=== PATIENT | female | born 1970 | race Caucasian/White ===

== ENCOUNTER → 2016-11-14 | Outpatient (CLI) | payer OTHER ==
--- NOTE | 2016-11-14 13:06 | REP ---
BILATERAL ANKLE, EIGHT VIEWS: HISTORY: Pain. RIGHT ANKLE, FOUR VIEWS: There is no acute fracture or dislocation. The joint space is normal in appearance. An osteophyte is present on the inferior calcaneus. IMPRESSION: There is no acute fracture or dislocation. LEFT ANKLE, FOUR VIEWS: There is no acute fracture or dislocation. The joint space is normal in appearance. Osteophytes are present on the inferior and posterior calcaneus. IMPRESSION: There is no acute fracture or dislocation. Signed by Phillip Dominguez MD 11/14/2016 01:29 P
--- NOTE | 2016-11-14 13:11 | REP ---
BILATERAL FOOT, EIGHT VIEWS: HISTORY: Pain. RIGHT FOOT, FOUR VIEWS: There is no acute fracture or dislocation. There is narrowing of tarsal and tarsal metatarsal joint spaces with associated osteophyte formation. There is narrowing of the first metatarsal phalangeal joint space. An osteophyte is present on the inferior calcaneus. IMPRESSION: Degenerative change as described above. LEFT FOOT, FOUR VIEWS: There is no acute fracture or dislocation. There is narrowing of tarsal and tarsal metatarsal joint spaces with associated osteophyte formation. There is narrowing of the first tarsal metatarsal joint space. Osteophytes are present on the inferior and posterior calcaneus. IMPRESSION: Degenerative change as described above. Signed by Phillip Dominguez MD 11/14/2016 01:29 P
== END ==
LOC: M WUC 11:20
PROVIDERS: ATTEND Family Medicine Addiction Medicine
DX: M25.571 Pain in right ankle and joints of right foot (principal); M25.572 Pain in left ankle and joints of left foot

== ENCOUNTER → 2017-01-23 | Outpatient (CLI) | payer OTHER ==
[~2017-01-23] MED LIST: ALEV220C2 PO; MAPA325T3 PO; METAPKT PO; PERCOCET PO
--- NOTE | 2017-01-23 15:34 | REP ---
TWO VIEW CHEST: COMPARISON: 06/12/2007. There is no evidence of acute infiltrate. No pleural effusion is seen. The heart is normal in size. The mediastinal silhouette is unremarkable. The visualized osseous structures are intact. There are degenerative changes of the spine. IMPRESSION: No acute pulmonary disease. Unreviewed
--- NOTE | 2017-01-23 15:37 | REP ---
Left shoulder: Three views. History: Left shoulder pain. Comparison study: February 13, 2015. Findings: There is osteoarthritic hypertrophy at the AC joint similar to the 2015 prior exam. The glenohumeral and acromioclavicular joints are normally aligned. Periarticular soft tissues are unremarkable. Impression: AC joint osteoarthritis. Otherwise negative left shoulder views. Signed by Lizandro Steven MD 01/23/2017 04:26 P
--- NOTE | 2017-01-23 15:40 | REP ---
Standing AP view of both knees: Single view. History: Pain. Findings: There is medial compartment joint space narrowing, mild in degree bilaterally. There is some early osteophytic lipping. Mild osteophytic lipping is seen affecting the lateral compartments as well. No erosive changes seen. Impression: Mild bilateral medial compartment joint space narrowing. Signed by Lizandro Steven MD 01/23/2017 04:26 P
--- NOTE | 2017-01-23 15:42 | REP ---
SI joint series: Four views. History: Pain. Findings: AP tube angle and bilateral oblique views of the SI joints demonstrate mild sclerosis on the iliac side of the SI joints bilaterally. No erosive change is seen. There are degenerative disc changes in the lumbar spine. Impression: Mild degenerative sclerosis. No erosive change or ankylosis seen. Signed by Lizandro Steven MD 01/23/2017 04:26 P
--- NOTE | 2017-01-23 15:45 | REP ---
Lumbar spine series: Five views. History: Pain. Findings: Five views of the lumbar spine show diffuse degenerative disc disease throughout the visualized thoracic and lumbar spine levels. In the lumbar spine this is the most pronounced at L4-5 and L5-S1. There is considerable disc space narrowing, sclerosis and spurring at T12-L1 as well. The lower thoracic canal degenerative disc changes have increased somewhat since 2014. Lumbar changes are essentially status quo. There is osteoarthritic facet hypertrophy and sclerosis bilaterally at L5-S1 and to a lesser extent at L4-5. Psoas margins are symmetric. Sacrum and SI joints are intact. Impression: Advanced degenerative spondylosis changes. Signed by Lizandro Steven MD 01/23/2017 04:26 P
[2017-01-23 15:57] LABS: ALBUMIN 3.6 GM/DL (3.2-5.2); ALBUMIN/GLOBULIN RATIO 0.92 (1.00-1.93); ALKALINE PHOSPHATASE 70 U/L (45-117); ALT/SGPT 20 U/L (12-78); ANION GAP 9 MEQ/L (8-16); AST/SGOT 14 U/L (15-37); BILIRUBIN,TOTAL 0.4 MG/DL (0.2-1.0); BLOOD UREA NITROGEN 14 MG/DL (7-18); CALCIUM LEVEL 8.1 MG/DL (8.5-10.1); CARBON DIOXIDE LEVEL 25 MEQ/L (21-32); CHLORIDE LEVEL 105 MEQ/L (98-107); CREATININE FOR GFR 0.75 MG/DL (0.55-1.02); GLOMERULAR FILTRATION RATE > 60.0 (>58); GLUCOSE, FASTING 73 MG/DL (70-105); POTASSIUM SERUM 4.3 MEQ/L (3.5-5.1); SODIUM LEVEL 139 MEQ/L (136-145); TOTAL PROTEIN 7.5 GM/DL (6.4-8.2)
[2017-01-23 16:50] LABS: ADD MANUAL DIFFER YES; DIFF SLIDE NUMBER 261; MEAN CORPUSCULAR HEMOGLOBIN 31.2 pg (27.0-33.0); MEAN CORPUSCULAR HGB CONC 34.2 g/dl (32.0-36.5); MEAN CORPUSCULAR VOLUME 91.3 fl (80.0-96.0); RED CELL DISTRIBUTION WIDTH 13.7 % (11.5-14.5); WHITE BLOOD COUNT 6.5 K/mm3 (4.0-10.0)
[2017-01-23 17:29] LABS: BASOPHILS 1 % (0-4); EOSINOPHILS 7 % (0-5)
[2017-01-23 17:30] LABS: PLATELET CLUMPS LARGE AMT
[2017-01-23 18:42] LABS: ERYTHROCYTE SEDIMENTATION RATE 31 mm/hr (0-20)
[2017-01-26 08:06] LABS: Lyme Disease IgG/IgM Antibodie <0.91 ISR (0.00-0.90); Lyme Disease IgM Ab Quantitati <0.80 index (0.00-0.79)
== END ==
LOC: M LAB 14:04
PROVIDERS: ATTEND Internal Medicine Rheumatology
DX: M35.9 Systemic involvement of connective tissue, unspecified (principal); E55.9 Vitamin D deficiency, unspecified; R53.83 Other fatigue; Z79.899 Other long term (current) drug therapy; M47.896 Other spondylosis, lumbar region; M25.512 Pain in left shoulder; M17.0 Bilateral primary osteoarthritis of knee

== ENCOUNTER 2017-02-04 07:07 | Inpatient (IN) | payer OTHER ==
[~2017-02-04] VITALS: Ht 167.6 cm; Wt 133.5 kg
[2017-02-04] MEDS ORDERED: ALEV220C2 PO (07:17)
--- NOTE | 2017-02-04 07:56 | REP ---
Clinical: Cerebrovascular accident . Comparison: None . Findings: The ventricles, sulci, and cisterns are normal in position and appearance. Cronin-white differentiation is maintained. No acute intracranial hemorrhage, mass/mass effect, pathology or trauma/injury. No evidence for acute infarction. No extra-axial fluid collection. Calvarium is intact. Paranasal sinuses and mastoid air cells are clear. Impression: Normal noncontrast head CT. No evidence for acute intracranial pathology or trauma/injury. Signed by Ralf Benson MD 02/04/2017 07:47 A
[2017-02-04 08:18] LABS: ADD MANUAL DIFFER YES; DIFF SLIDE NUMBER 156; MEAN CORPUSCULAR HEMOGLOBIN 30.7 pg (27.0-33.0); MEAN CORPUSCULAR HGB CONC 33.8 g/dl (32.0-36.5); MEAN CORPUSCULAR VOLUME 90.8 fl (80.0-96.0); RED CELL DISTRIBUTION WIDTH 13.4 % (11.5-14.5); WHITE BLOOD COUNT 6.7 K/mm3 (4.0-10.0)
[2017-02-04 08:19] LABS: INR 0.97
--- NOTE | 2017-02-04 08:23 | REP ---
Clinical: Cerebrovascular accident . Comparison: 01/23/2017 . Findings: The mediastinum and cardiac silhouette are stable and within normal limits for portable technique. The lung foy are clear without acute consolidation, effusion, or pneumothorax. Skeletal structures are intact. Impression: No acute cardiopulmonary process appreciated. Signed by Ralf Benson MD 02/04/2017 08:13 A
[2017-02-04 08:37] LABS: ANION GAP 8 MEQ/L (8-16); BLOOD UREA NITROGEN 13 MG/DL (7-18); CALCIUM LEVEL 8.4 MG/DL (8.5-10.1); CARBON DIOXIDE LEVEL 27 MEQ/L (21-32); CHLORIDE LEVEL 106 MEQ/L (98-107); CREATININE FOR GFR 0.77 MG/DL (0.55-1.02); GLOMERULAR FILTRATION RATE > 60.0 (>58); GLUCOSE, FASTING 96 MG/DL (70-105); POTASSIUM SERUM 3.8 MEQ/L (3.5-5.1); SODIUM LEVEL 141 MEQ/L (136-145)
[2017-02-04 08:59] LABS: BANDS 1 % (< 11); BASOPHILS 2 % (0-4); EOSINOPHILS 1 % (0-5); PLATELET CLUMPS MODERATE AMT
[2017-02-04 09:00] LABS: ANISOCYTOSIS 1+
[2017-02-04] MEDS ORDERED: ENOXAPARIN 40 MG/0.4 ML SYRINGE (J1650) SC SCH (09:00)
[2017-02-04] MEDS ORDERED: ASPIRIN 81 MG CHEW TABLET PO SCH (09:00)
[2017-02-04] MEDS ORDERED: ONDANSETRON 4MG/2ML VIAL (J2405) IV PRN (12:15)
[2017-02-04] MEDS ORDERED: ACETAMINOPHEN TAB 650MG DOSE (2X325MG) PO PRN (12:15)
[2017-02-04 12:42] LABS: FOLATE 9.9 NG/ML (>5.4)
--- NOTE | 2017-02-04 13:17 | HPE ---
DATE OF ADMISSION: 02/04/2017 This is a patient of [facility]. Dermatologist: Dr. Moreira CHIEF COMPLAINT: Is "I've forgotten how to walk." Following is a summary of her presentation. This is a 46-year-old who has had a history of tingling in her right fingertips for around 1 month and has had decreased sensation in her right leg for a lesser period of time. Yesterday, she was having difficulty walking, had decreased strength in her right foot, felt as though she was dragging her foot. Her boyfriend told her that it looked as though she was walking as if she was drunk. She waited a day to see if it would get better. It has not gotten better. She came to the hospital for evaluation today. She is not complaining of chest pain. No shortness of breath. No orthopnea. No paroxysmal nocturnal dyspnea. Not describing daytime sleepiness or difficulty speaking or swallowing. She has had no changes in her medications, as she is not taking medications on a regular basis. Has undergone workup recently with Dr. Moreira due to her neurologic symptoms. She has a past medical history of suspected rheumatic disease; workup pending. No known drug allergies. Does not take medications every day. SURGICAL HISTORY: Is notable for two (C) sections, a back surgery for disc repair remotely, bilateral carpal tunnel surgery in 2005, tubal ligation. FAMILY HISTORY: Is notable for a father who is 75 with history of testicular cancer, hypertension, diabetes. A mother who is 74 with ovarian cancer, hypertension. Socially, she has not smoked in 2 years. 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 She lives in [place]. REVIEW OF SYSTEMS: Is notable for no headache. No visual changes. No runny nose. No sore throat. No chest pain. No shortness of breath. No palpitations. No orthopnea. No paroxysmal nocturnal dyspnea. No abdominal pain. No change in bowel or bladder habits. No focal weakness apart from what has been described. No history of seizures. On physical examination, temperature is 97.8, pulse 74, respiratory rate is 18, blood pressure 168/68, 95% on room air. She is awake, appropriately interactive. A good historian. She is wearing corrective lenses. Sinuses are nontender. Pupils equal, round, reactive, anicteric. Extraocular movements are intact. Nasal septum is midline. Mucous membranes are moist. Facies are symmetrical. Neck is thick. No obvious elevation in jugular venous pressure (JVP). Breathing is symmetrical and rested. I-to-E ratio is 1:3. No wheezes, rales, or rhonchi. Heart is in a regular rate and rhythm. Normal S1, S2. Electrocardiogram (EKG) shows the patient to be in a normal sinus rhythm with a rate of 64. QTc is in the normal range. Abdomen: Soft, doughy, nontender. Strength is symmetrical in the upper extremities. Strength on the right lower extremity is 2+, as she is unable to resist gravity. Patellar reflex on the right is 3+. I am unable to elicit reflex on the left. Sensation is decreased on the right leg to pinprick. There is some decreased sensation in the right hand, as well. Laboratories available for me to review include: White cell count 6.7, hemoglobin 13.4, platelets are clumped. Erythrocyte sedimentation rate (ESR) is 35. INR is 0.97. BUN 13, creatinine 0.7, C-reactive protein 0.44. Rheumatoid factor on the 24th is less than 10. Lyme panel is negative. Head CT is unremarkable. MRI of the C spine and head are pending. Chest x-ray is unremarkable. My assessment is as follows: This is a 46-year-old with focal neurologic deficit of the right lower extremity with complicating numbness of the right hand. This is possibly C spine versus brain, if we relate them. Dr. Khan has been consulted. MRI is pending. The patient will be placed on telemetry. Will do neuro checks. Check a fasting lipid panel. 2D echocardiogram. Carotid Doppler. Monitor her blood pressure. I have also checked a hemoglobin A1c. Thyroid-stimulating hormone (TSH) was in a normal range on 01/23/2017. It does look at that time that her vitamin D level was low. Would likely benefit from supplementation. Deep venous thrombosis (DVT) prophylaxis has been ordered. [facility]
--- NOTE | 2017-02-04 14:10 | REP ---
Clinical: Transient ischemic attack . Technique: Cronin scale and color Doppler evaluation using linear high frequency transducer Findings: Two-dimensional crnoin scale and color images demonstrate normal arterial lumen with laminar flow and no appreciable narrowing. Color Doppler interrogation demonstrates normal arterial wave patterns and velocities with no significant spectral broadening. Normal flow direction is appreciated in the left vertebral artery while the right vertebral artery was not identified. RIGHT (cm/s) LEFT (cm/s) ICA peak systolic velocity 63.4 68.9 ICA diastolic velocity 20.5 27.2 ECA peak systolic velocity 74.6 95.5 CCA peak systolic velocity 78.2 95.7 ICA/CCA ratio 0.81 0.72 Impression: No hemodynamically significant areas of narrowing or stenosis appreciated. Based on set standards narrowing falls within the normal/less than 50% range. Signed by Ralf Benson MD 02/04/2017 02:08 P
[2017-02-04 15:30] VITALS: BP 163/90
[2017-02-04 16:00] VITALS: BP 185/84
[2017-02-04 16:58] LABS: PLTBLUE- EDTA FREE CALC 186 K/mm3 (172-450); PLTBLUE- EDTA FREE MACHINE 169 K/mm3 (172-450)
[2017-02-04 17:15] VITALS: BP 165/70
--- NOTE | 2017-02-04 18:41 | REP ---
MRA BRAIN WITHOUT CONTRAST: HISTORY: Right side weakness. 3D [id number] MR angiography was performed at the level of the [place]. There is no aneurysm, arteriovenous malformation or atherosclerotic lesion. There is origin of the right posterior cerebral artery. Major intracranial vessels are patent. The left vertebral artery is dominant. IMPRESSION:Normal MRA brain. Signed by Phillip Dominguez MD 02/05/2017 08:32 A
--- NOTE | 2017-02-04 18:46 | REP ---
MR BRAIN WITHOUT CONTRAST: HISTORY: Right side weakness. COMPARISON: CT 02/04/2017. Several punctate areas of increased signal intensity on T2 weighted images are present periventricular and subcortical white matter. This represents small vessel ischemic disease. There is no intraparenchymal hemorrhage, infarct, mass, or midline shift. The ventricular system is normal in appearance. There is no extracerebral collection. Mucosal thickening is present in the left maxillary sinus. IMPRESSION: Minimal small vessel ischemic disease. Signed by Phillip Dominguez MD 02/05/2017 08:33 A
--- NOTE | 2017-02-04 18:58 | REP ---
MR CERVICAL SPINE WITHOUT CONTRAST: HISTORY: Right side weakness. A small central disc protrusion is present at the C2-3 level. There is minimal effacement of the thecal sac without spinal cord compression. The C2 neural foramina are patent. A disc bulge and small central disc protrusion are present at the C3-4 level. There is mild effacement of the thecal sac without spinal cord compression. Bilateral uncinate process and left facet hypertrophy are present. These findings produce moderate narrowing of the C3 neural foramina. A disc bulge with associate osteophyte formation is present at the C4-5 level. There is minimal spinal cord compression. Bilateral uncinate process hypertrophy is present. This produces mild and moderate narrowing of the right and left C4 neural foramina respectively. A disc bulge with associate osteophyte formation is present at the C5-6 level. There is mild spinal cord compression. Bilateral uncinate process hypertrophy is present. This produces moderate and mild narrowing of the right and left C5 neural foramina respectively. A disc bulge with associate osteophyte formation is present at the C6-7 level. There is moderate effacement of the thecal sac without spinal cord compression. Uncinate process hypertrophy is present on the right. This produces mild narrowing of the right C6 neural foramen. The left C6 neural foramina is patent. A small central disc protrusion is present at the T1-2 level. There is minimal effacement of the thecal sac without spinal cord compression. The T1 neural foramina are patent on the sagittal images. A small focus of increased signal intensity on T2 weighted images is present in the spinal cord at the C6-7 level. This represents myelomalacia. The C4-5 through C6-7 intervertebral discs are decreased in height consistent with disc degeneration. Normal signal intensity is present in the cervical vertebral bodies. There is loss of the normal lordotic curve. IMPRESSION:There is cervical spondylosis at the C2-3 through C6-7 levels, most significant at the C4-5 and C5-6 levels where there is minimal and mild spinal cord compression respectively. Signed by Phillip Dominguez MD 02/05/2017 08:33 A
[2017-02-04] MEDS: CYANOCOBALAMIN 1,000 MCG/ML VIAL (J3420) IM SCH (19:54)
[2017-02-04 20:00] VITALS: BP 132/73
[2017-02-04 20:20] VITALS: BP 176/83
[2017-02-04] MEDS: SIMVASTATIN 20 MG TAB PO SCH (20:48)
--- NOTE | 2017-02-04 21:11 | ECGEPIP ---
Stationary ECG Study [facility] - ED Test Date: 2017-02-04 Pat Name: JON VENTURA Department: Room: - Gender: F Applique Cutter: YONATHAN : 1970 Requested By: Aubrie Whitaker Order Number: [id number] Reading MD: Aubrie Whitaker Measurements Intervals [place] Rate: 64 P: 13 MT: 159 QRS: 7 QRSD: 98 T: 18 QT: 400 QTc: 413 Interpretive Statements SINUS RHYTHM LOW QRS VOLTAGE IN PRECORDIAL LEADS DELAYED R PROGRESSION NO PRIOR FOR COMPARISON Electronically Signed On 02-04-2017 21:11:18 EDT by Aubrie Whitaker
[2017-02-04] MEDS: methylPREDNISolone INJ 125 MG/2 ML VIAL (J2930) IV SCH (22:06)
[2017-02-05] VITALS: BP 141/77
[2017-02-05] MEDS: methylPREDNISolone INJ 125 MG/2 ML VIAL (J2930) IV SCH ×4 (03:55→20:51)
[2017-02-05 04:00] VITALS: BP 141/79
[2017-02-05 05:50] LABS: MEAN CORPUSCULAR HEMOGLOBIN 31.4 pg (27.0-33.0); MEAN CORPUSCULAR HGB CONC 34.5 g/dl (32.0-36.5); MEAN CORPUSCULAR VOLUME 91.1 fl (80.0-96.0); WHITE BLOOD COUNT 4.6 K/mm3 (4.0-10.0)
--- NOTE | 2017-02-05 06:40 | CR ---
DATE OF CONSULTATION: 02/04/2017 REFERRING PHYSICIAN: Dr. Maurice Damon REASON FOR CONSULTATION: Difficulty walking and right-sided numbness and weakness. HISTORY OF PRESENT ILLNESS: The patient is a 46-year-old woman who was admitted at [facility] due to 5-6 week history of right foot numbness and right arm numbness which has been getting worse. Her symptoms got worse yesterday and she started feeling weakness of her right leg with right-sided foot drop. She felt imbalance and difficulty walking due to incoordination. She denies any headaches, dysphagia, dysarthria, diplopia or urinary incontinence. She complains of intermittent neck and back pain. She has restless legs and periodic leg movements at sleep at night. She denies any episode of stroke or TIA in past. She denies any episodes of loss of vision in past. She denies any falls or loss of consciousness. PAST MEDICAL HISTORY: Possible rheumatoid arthritis for which she has been following with a police district switchboard operator. ALLERGIES: None. CURRENT MEDICATIONS: None. PAST SURGICAL HISTORY: sections, lumbosacral laminectomy, bilateral carpal tunnel surgery, tubal ligation. FAMILY HISTORY: Father had testicular cancer. Father also had hypertension, diabetes and heart disease. Mother had ovarian cancer. SOCIAL HISTORY: She quit smoking 2 years ago. 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 REVIEW OF SYSTEMS: All systems were reviewed and found to be noncontributory. PHYSICAL EXAMINATION: Temperature 97, pulse 68, respiratory rate 16, blood pressure 185/84, 95% saturation on room air. Heart: Regular rate and rhythm. Lungs: Clear to auscultation. Abdomen: Soft, nontender, nondistended. No pedal edema. No gross musculoskeletal abnormalities. Ears, nose, throat examination is within normal limits. No rash was identified. The patient is awake, alert, oriented to place, person and time. Normal speech comprehension and repetition. Extraocular muscles are intact. No facial weakness. Right upper extremity is 4+/5 throughout. Right lower extremity is 4-/5 throughout except right foot dorsiflexors where her strength is 2/5. Left arm and leg are 5/5. She has a positive Miranda's signs in both hands, worse on right side. Plantars are mute. Her gait is unsteady. DIAGNOSTIC STUDIES: Her MRI scan of brain showed small vessel ischemic disease of brain. Carotid ultrasound showed less than 50% bilateral carotid artery stenosis. Her blood tests for coagulopathy and vasculopathy, Lyme antibody are pending. Her vitamin B12 is low 240. Her CBC and metabolic profile were normal. Her ESR is 35. Her MRI of cervical spine showed severe cervical stenosis with cervical cord compression and myelomalacia at the C4-C5 level. ASSESSMENT: 1. Cervical myelopathy. 2. Cervical severe stenosis and cervical cord compression. 3. Small-vessel ischemic disease of brain. 4. Vitamin B12 deficiency. PLAN: 1. I have discussed with Dr. Damon and have recommended urgent spine surgery consultation due to cervical myelopathy and stenosis. 2. Vitamin B12 1 mg intramuscular injection daily for 10 days followed by 1 mg SD daily supplement. 3. Physical and occupational therapy and rehabilitation. 4. Follow with our office in 1 month after hospital discharge.
[2017-02-05 07:37] LABS: ANION GAP 9 MEQ/L (8-16); BLOOD UREA NITROGEN 14 MG/DL (7-18); CALCIUM LEVEL 8.7 MG/DL (8.5-10.1); CARBON DIOXIDE LEVEL 21 MEQ/L (21-32); CHLORIDE LEVEL 109 MEQ/L (98-107); CHOLESTEROL LEVEL 170 MG/DL (<200); CREATININE FOR GFR 0.76 MG/DL (0.55-1.02); GLOMERULAR FILTRATION RATE > 60.0 (>58); GLUCOSE, FASTING 157 MG/DL (70-105); MAGNESIUM LEVEL 2.3 MG/DL (1.8-2.4); POTASSIUM SERUM 4.3 MEQ/L (3.5-5.1); SODIUM LEVEL 139 MEQ/L (136-145); TRIGLYCERIDES LEVEL 52 MG/DL (<150)
[2017-02-05 08:00] VITALS: BP 135/75
--- NOTE | 2017-02-05 08:45 | REP ---
Cervical spine series: Eight views. History: Spinal stenosis. Comparison study: February 13, 2015. Findings: Lateral views done in flexion/extension and neutral position show advanced degenerative disc disease at C4-5, C5-6 and C6-7 with disc space narrowing, sclerosis, osteophyte formation and straightening. There is limitation of flexion/extension range of motion. No subluxation or instability. Vertebral body heights are preserved. These changes are somewhat more pronounced but not new when compared with the January 2015 prior radiographs. AP and open mouth odontoid views show some diffuse osteoarthritic facet hypertrophy in the cervical spine. Oblique images demonstrate uncovertebral spurring consistent with neural foraminal narrowing on the left at C4-5, C5-6 and on the right at C5-6 and C6-7. Impression: Advanced degenerative spondylosis changes C4-5 through C6-7. More pronounced than on the 2014 prior study. Signed by Lizandro Steven MD 02/05/2017 09:53 A
[2017-02-05] MEDS: CYANOCOBALAMIN 1,000 MCG/ML VIAL (J3420) IM SCH (10:50)
[2017-02-05 12:00] VITALS: BP 126/76
[2017-02-05] MEDS ORDERED: NS 1,000 ML IV SCH (12:00)
[2017-02-05] MEDS ORDERED: SLF 3 ML SYR IV PRN (12:45)
--- NOTE | 2017-02-05 13:23 | IPN ---
DATE: 02/05/2017 Ms. Roa is feeling well today, has no complaints of pain, chest pain, shortness of breath. Still has similar neurologic symptoms as yesterday, numbness in her right hand and upper extremity and right lower extremity, as well as some weakness in her right lower extremity. Temperature 97.9, pulse 65, respiratory rate 18, blood pressure 135/75, 97% on room air. Intake and output are notable for a positive fluid balance of 560. Body mass index 48.2. She is awake, appropriately interactive, pleasantly conversant. Her mother and stepfather are at bedside. Mucous membranes moist. Neck supple, thick. Breathing symmetrical. I:E ratio is 1:3 No wheeze, rales or rhonchi. Heart is in a regular rate and rhythm. No significant arrhythmia on monitor. Abdomen soft, doughy, nontender. Decreased sensation in the right lower extremity. White cell count 4.6, hemoglobin 14.3, platelets yesterday 186. INR 0.97. BUN 14, creatinine 0.76. Hemoglobin A1c is 5.5. LDL is 107. Vitamin B12 level is 240. My assessment is as follows: This is a 46-year-old with cervical stenosis and cervical cord compression with cervical myelopathy. Plan will be as follows: 1. Orthopedic. I have discussed the case by phone last evening with Dr. Duron who has seen the patient in consultation with plans for the operating room (OR) tomorrow Discussed this with the patient and family at bedside. 2. Cardiovascular. The patient has good exercise tolerance, is quite active in her activities of daily living. Has no angina or anginal equivalence. At this point, no further workup is necessary to pursue. She is medically optimized for a procedure, which is at least intermediate risk. 3. Patient has vitamin B12 deficiency and is being supplemented. 4. Patient was initially considered for possibility of transient ischemic attack (TIA). At this point, we will continue with planned 2D echocardiogram. No events of TIA or stroke. Hemoglobin A1c was within normal limits. Patient has also been noted to be vitamin D deficient. 5. Morbid obesity complicates care MTDD
[2017-02-05] MEDS: SLF 3 ML SYR IV SCH ×2 (14:00→20:51)
[2017-02-05 16:00] VITALS: BP 138/83
--- NOTE | 2017-02-05 18:18 | ECGEPIP ---
Stationary ECG Study [facility] Test Date: 2017-02-05 Pat Name: JON VENTURA Department: Room: [place] [address] Gender: F Switch Crew Supervisor: DICK : 1970 Requested By: ML Saini Order Number: [id number] Reading MD: Finn Armando Measurements Intervals [place] Rate: 60 P: 26 VT: 146 QRS: 19 QRSD: 101 T: 42 QT: 454 QTc: 455 Interpretive Statements Normal sinus rhythm with sinus arrhythmia Low QRS complex voltage in the limb leads Delayed anterior R wave progression No significant change when compared to prior tracing of 02/04/2007 Electronically Signed On 02-05-2017 18:18:13 EDT by Finn Armando
--- NOTE | 2017-02-05 20:20 | REPUSA ---
HISTORY: OSSIFICATION PLL MYELOPATHY. TECHNIQUE: Axial CT imaging of cervical spine and neck with sagittal and coronal reformatted imaging, without contrast. DLP= 406.2 mGy-cm. FINDINGS: Bone windows demonstrate no evidence of fracture or destructive bony lesion, or instability . There is disc space narrowing, sclerosis, and spurring at C4/C5, C5/C6, and C6/C7 consistent with degenerative spondylosis, with multiple levels of facet joint osteoarthritis, resulting in bilateral foraminal stenosis at C4/C5, right foraminal stenosis at C5/C6, and right foraminal stenosis at C6/C7 . There is no calcification in the posterior longitudinal ligament, but there is prominent posterior spurring and facet joint osteoarthritis resulting in 0.6 cm canal stenosis at C4/C5, and 0.5 cm tanner l stenosis at C5/C6 and at C6/C7. This could be better evaluated with MRI if clinically indicated. The airway in the neck is patent and normal. Larynx is normal. Salivary glands and thyroid gland ar e normal. There are small bilateral benign appearing postinflammatory lymph nodes in the neck, with no other pathologic soft tissue mass lesions or abnormal fluid collection seen in the neck. IMPRESSION: 1. No evidence of fracture or destructive bony lesion, or instability seen in the cervic al spine. 2. There is no significant calcification/ossification seen in the posterior longitudinal ligament, b ut there is multilevel degenerative spondylosis and facet joint osteoarthritis as discussed above, re sulting in 0.5 cm canal stenosis at C5/C6 and C6/C7, and 0.6 cm canal stenosis at C4/C5. There is al so bilateral foraminal stenosis at C4/C5 and right foraminal stenosis at C5/C6 and C6/C7. 3. Small benign appearing postinflammatory cervical lymph nodes are noted with no other pathologic m ass lesions or abnormal fluid collection seen in the neck. Clinical correlation and followup MRI imaging may be warranted as clinically indicated.
--- NOTE | 2017-02-05 20:50 | CR ---
DATE OF CONSULTATION: 02/05/2017 CHIEF COMPLAINT: Cervical myelopathy. HISTORY OF PRESENT ILLNESS: This is a 46-year-old woman who has a history of recent onset of trouble walking. She admits actually that she has had some trouble walking and had to think harder about moving her right lower extremity going on for about 6 months along with some neck pain and sometimes tingling in the right upper extremity. However, those symptoms seemed over the last 3 days to have gotten worse, although today on steroids she is feeling little bit better in terms the numbness in the right hand. She felt like she was walking like a drunk prior to getting admitted to the hospitalist service for further evaluation. She had waited a day to see if it got better, and it didn't better. She has also been seen by Dr. Turner for neurologic issues. There is some consideration for possible rheumatic disease. No known allergies. Does not take daily medications. PAST SURGICAL HISTORY: Include C-sections x2, low back surgery in the past, carpal tunnel surgery in 2005, tubal ligation in the past. FAMILY HISTORY: She has living parents who are 70s, who has some medical issues themselves. SOCIAL HISTORY: Does not smoke. 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 She has a boyfriend. REVIEW OF SYSTEMS: She is not complaining of headache or blurry vision, sore throat, chest pain, abdominal pain. She is complaining of right upper extremity numbness, instability of her gait. Denies history of seizure disorder. CLINICAL EXAMINATION: She is alert, oriented, cooperative. Mood and affect are appropriate. She is very pleasant and articulate. She has clear phonation. She has decreased cervical range of motion, however, she does not seem to voice neck discomfort. She indicates that right upper extremity symptoms become somewhat worse depending on neck position and how she sleeps. She has a positive Miranda's reflex in both upper extremities but absent clonus in the lower extremity. There is abnormal sensation in the right lower extremity compared to the left lower extremity gait. She is clearly wide-based. Abdomen is soft, mild obesity. Strength she seems to have preserved strengths in the upper and lower extremities. She has decreased sensation diffusely in the right upper extremity towards the hand and in the lower extremities some iliopsoas weakness. She is hyperreflexic the patella on the right +3, trace on left, ankles absent. Recent rheumatoid factor was less than 10. IMAGING STUDIES: Cervical spine plain films reveal extensive osteophyte formation involving C4-5 and C5-6 and degenerative changes at C4-C5, C5-C6 and C6-C7 to the greatest degree. There is also some arthritic changes C1-2 but not as traumatic. There is decreased disk height C4-C5, C5-C6 and C6-C7. MRI the cervical spine reflects quite significant cervical spinal stenosis and cervical deformity. She is quite kyphotic from C4-C7. There is spinal cord deformity at C4-C5 and C5-C6 and there is a right paracentral disk herniation at C5-C6. At C6-C7 there is only moderate spinal stenosis and mild cord deformity. In my opinion the cord deformity at C5-C6 is closer to severe than moderate and at C4-X5 is also closer to severe than mild. There seems to be in my opinion some cord signal change posterior to the vertebral body of C5. IMPRESSION: Cervical myelopathy, right upper extremity radiculopathy, gait disorder. RECOMMENDATIONS: I spoke frankly with the patient about different treatment options and we are considering surgical intervention such as anterior cervical decompression and fusion from C4 through C7. In my opinion is seems appropriate to get a CT scan to evaluate for ossification of the posterior longitudinal ligament. I had a discussion with the patient about that, and I think we should have a low threshold especially of OPLL is present to consider further evaluation and treatment at [facility] because tertiary center might be better quit to accomplish what she needs in that event. We talked about leaving her on the OR schedule as an add-on for tomorrow pending the CT scan, which I will review the morning and review with the patient. I talked frankly with the patient about her condition, about the anatomy, about what cervical myelopathy means, and about limited goals in terms of recovery. In my opinion, it is certain that the patient will have some residual deficit after any surgical procedure and in fact the surgeries typically done to prevent a worsening of symptoms ideally rather than improvement, although many patients appreciate some improvement in symptoms postoperatively. All this conversation was accomplished between myself, the patient and the patient's mother who is present tonight. I also coordinated care with Dr. Maurice Damon, the hospitalist. 70 minutes invested, more than 50% face to face time. For further details please refer to the medical record. NAIN
[2017-02-05] MEDS: SIMVASTATIN 20 MG TAB PO SCH (20:51)
[2017-02-05 23:51] VITALS: BP 142/80
[2017-02-06] VITALS (7 sets, daily range): BP systolic 122–160; BP diastolic 59–94
[2017-02-06] MEDS: NS 1,000 ML IV SCH ×2 (00:02→11:05)
[2017-02-06 00:06] LABS: Lyme Disease IgG/IgM Antibodie <0.91 ISR (0.00-0.90); Lyme Disease IgM Ab Quantitati <0.80 index (0.00-0.79)
[2017-02-06] MEDS: methylPREDNISolone INJ 125 MG/2 ML VIAL (J2930) IV SCH ×3 (03:00→15:00)
[2017-02-06] MEDS: SLF 3 ML SYR IV SCH ×2 (04:24→14:00)
[2017-02-06 05:51] LABS: MEAN CORPUSCULAR HEMOGLOBIN 31.7 pg (27.0-33.0); MEAN CORPUSCULAR HGB CONC 34.9 g/dl (32.0-36.5); MEAN CORPUSCULAR VOLUME 90.8 fl (80.0-96.0); RED CELL DISTRIBUTION WIDTH 13.1 % (11.5-14.5); WHITE BLOOD COUNT 12.1 K/mm3 (4.0-10.0)
--- NOTE | 2017-02-06 06:10 | ECHO ---
DATE OF PROCEDURE: 02/05/2017 DATE OF : 1970 AGE: 46 REFERRING PROVIDER: Dr. Maurice Damon PATIENT LOCATION: Room 3212 REASON FOR THE ECHOCARDIOGRAM: Transient ischemic attack (TIA). 2D MEASUREMENTS: IVS: 1.0 cm. LV: 3.8 cm. LVPW: 1.0 cm. LA: 3.6 cm. Aorta: 3.0 cm. IVC: 2.0 cm. DOPPLER MEASUREMENTS: Peak velocity across the aortic valve: 1.9 m/s. Peak velocity across the LVOT: 1.1 m/s. Mitral E: 0.78, Mitral A: 1.0 with a ratio of 0.8. 2D COMMENTS: 1. Normal left ventricular size, wall thickness and a normal global left ventricular systolic function. Left ventricular ejection fraction is estimated at 60-65%. 2. Normal left atrium. Normal right atrium and right ventricle. 3. The atrial septum appeared to be normal without evidence of defect or shunt. 4. Normal aortic root. 5. Trace pericardial effusion was noted. No evidence of cardiac tamponade. 6. Normal aortic valve. Normal mitral valve, tricuspid valve. The pulmonic valve and proximal pulmonary artery branches were not well visualized. 7. The inferior vena cava was normal in size, central venous pressure is most likely normal. DOPPLER: Only trace tricuspid regurgitation detected. The calculated pulmonary artery systolic pressure was normal, less than 30 mmHg. Abnormal relaxation pattern was noted across the mitral valve leaflets as well as the mitral valve annulus consistent with a grade 1 left ventricular diastolic dysfunction. IMPRESSION: 1. Normal global left ventricular systolic function. There were features of left ventricular diastolic dysfunction, grade 1. 2. Aortic valve sclerosis with trivial aortic stenosis but no aortic regurgitation. 3. Trace tricuspid regurgitation. 4. Trace pericardial effusion. MTDD
[2017-02-06 06:15] LABS: ANION GAP 10 MEQ/L (8-16); BLOOD UREA NITROGEN 18 MG/DL (7-18); CALCIUM LEVEL 8.7 MG/DL (8.5-10.1); CARBON DIOXIDE LEVEL 23 MEQ/L (21-32); CHLORIDE LEVEL 111 MEQ/L (98-107); CREATININE FOR GFR 0.83 MG/DL (0.55-1.02); GLOMERULAR FILTRATION RATE > 60.0 (>58); GLUCOSE, FASTING 154 MG/DL (70-105); MAGNESIUM LEVEL 2.1 MG/DL (1.8-2.4); POTASSIUM SERUM 4.3 MEQ/L (3.5-5.1); SODIUM LEVEL 144 MEQ/L (136-145)
[2017-02-06] MEDS: CYANOCOBALAMIN 1,000 MCG/ML VIAL (J3420) IM SCH (09:25)
[2017-02-06] MEDS ORDERED: methylPREDNISolone 500 MG VIAL (J2930) As Ordered ONE (13:11)
[2017-02-06] MEDS ORDERED: THROMBIN SOLN 20,000 UNITS KIT As Ordered ONE (13:11)
[2017-02-06] MEDS ORDERED: LIDOCAINE W/EPINEPHRINE 1% 20ML VIAL As Ordered ONE (13:12)
[2017-02-06] MEDS ORDERED: BACITRACIN PWD 50,000 UNITS VIAL As Ordered ONE (13:12)
--- NOTE | 2017-02-06 13:22 | IPN ---
DATE: 02/06/2017 Ms. Roa is feeling well this morning. Her symptoms in her right arm and leg have not changed. She is looking forward to surgery today and is confident that she will work hard toward recovery. Temperature is 98.1, pulse 69, respiratory rate 18, blood pressure 152/94, 95% on room air. Intake and output notable for a positive fluid balance of 630, no bowel movements noted since she has been in the hospital. She is awake, appropriately interactive, and pleasantly conversant. Heart is distant sounding , normal S1 and S2. Radial pulses are 2+. Capillary refill is less than 2 seconds. Breathing is symmetrical and rested. I-to-E ratio is 1:3. No wheezes , rales or rhonchi. She is speaking in complete sentences. No accessory muscle. Abdomen is soft, doughy, nontender. White cell count 12.1, hemoglobin 13.8, platelets of 102. Sodium is 144, potassium 4.3, chloride 111, carbon dioxide 23, BUN is 18, creatinine 0.83. Neck CT done yesterday shows no evidence of fracture or bony lesion. No calcification or ossification in the posterior longitudinal ligament. My assessment is as follows: This is a 46-year-old with cervical stenosis and cervical cord compression with cervical myelopathy. Plan will be as follows: 1. Orthopedic. I have discussed this case with Dr. Duron who plan to proceed to the OR today for this urgent procedure. 2. Cardiovascular. Patient has good exercise tolerance and is active in her activities of daily living. Continues with no evidence of angina or anginal equivalent. She continues to be medically optimized for the current procedure. 3. Patient has elevated blood pressure, which is possibly related to the use of steroids. Postoperatively will consider blood pressure control as deemed clinically relevant. 4. The patient has B12 deficiency and is currently being supplemented. 5. Patient was initially considered to have a transient ischemic attack (TIA) but was found to have a cervical spine lesion. 2D echocardiogram was done which shows normal left ventricular systolic function but grade 1 diastolic dysfunction. 6. Morbid obesity complicates care MTDD
[2017-02-06] MEDS ORDERED: ceFAZolin 2 GM/D5W 50 ML IV BAG (J0690) As Ordered ONE ×2 (13:44→17:50)
[2017-02-06] MEDS ORDERED: ROCURONIUM BROMIDE 50 MG/5 ML VIAL/SYRINGE As Ordered ONE (15:17)
[2017-02-06] MEDS ORDERED: fentaNYL 100 MCG/2 ML INJECTION (J3010) As Ordered ONE (15:17)
[2017-02-06] MEDS ORDERED: PROPOFOL 200 MG/20 ML VIAL As Ordered ONE (15:17)
[2017-02-06] MEDS ORDERED: MIDAZOLAM INJ 2 MG/2 ML VIAL (J2250) As Ordered ONE (15:17)
[2017-02-06] MEDS ORDERED: ONDANSETRON 4MG/2ML VIAL (J2405) As Ordered ONE (15:17)
[2017-02-06] MEDS ORDERED: HYDROmorphone HCL 2 MG/ML 1ML VIAL (J1170) As Ordered ONE ×2 (15:17→19:07)
[2017-02-06] MEDS ORDERED: LIDOCAINE 2% INJ 100 MG/5 ML SDV (FOR ANES.) As Ordered ONE (15:17)
[2017-02-06] MEDS ORDERED: NEOSTIGMINE 1MG/ML 5 ML SYRINGE (J2710) As Ordered ONE (15:18)
[2017-02-06] MEDS ORDERED: GLYCOPYRROLATE INJ 0.2 MG/ML 2 ML VIAL As Ordered ONE (15:18)
[2017-02-06] MEDS ORDERED: ePHEDrine SULFATE 25 MG/5 ML(5MG/ML) SYRINGE As Ordered ONE (16:31)
--- NOTE | 2017-02-06 16:48 | REP ---
Cross-table lateral spine: Single view: History: TIA. Findings: Cross-table lateral portable radiograph of the cervical spine time stamped 04:05 p.m. demonstrates a nasopharyngeal and a orotracheal tube in place. An operative probe is seen superimposed on the C5-6 intervertebral disc margin anteriorly. Signed by Lizandro Steven MD 02/06/2017 04:54 P
[2017-02-06] MEDS ORDERED: VANCOMYCIN HCL 500 MG/10 ML VIAL (J3370) As Ordered ONE (19:23)
[2017-02-06] MEDS ORDERED: LR 1,000 ML IV SCH (21:00)
[2017-02-06] MEDS ORDERED: MORPHINE 2 MG/ML 1ML SYRINGE IV PRN (21:00)
[2017-02-06] MEDS ORDERED: ONDANSETRON 4MG/2ML VIAL (J2405) IV PRN (21:00)
[2017-02-06] MEDS ORDERED: D5W/0.45% SODIUM CHLORIDE 1,000 ML IV SCH (21:00)
[2017-02-06] MEDS ORDERED: ACETAMINOPHEN TAB 650MG DOSE (2X325MG) PO PRN (21:00)
[2017-02-06] MEDS ORDERED: fentaNYL 100 MCG/2 ML INJECTION (J3010) IV PRN (21:00)
[2017-02-06] MEDS ORDERED: PERCOCET 5MG/325MG TAB PO PRN ×2 (21:00)
--- NOTE | 2017-02-06 22:02 | CR ---
DATE OF CONSULTATION: 02/06/2017 The patient was seen and examined this morning 02/06/2017. Prior to seeing the patient, I reviewed the patient's CT scan which was done last evening at [facility] to evaluate for spinal stenosis and to evaluate for potential ossification of the posterior longitudinal ligament. The patient was to understand that I was to understand that there was presence of the ossification of the posterior longitudinal ligament. Because of this condition, we would likely arrange for transfer to [facility] for consideration of surgical options for a cervical myelopathy. However, ossification of the posterior longitudinal ligament was not present on the CT scan. Next, after reviewing the CT scan, I talked with the patient about how to proceed and the patient did elect to have her surgery done here and I did elect and make the decision to do her surgery here at [facility] this morning based on the patient's preference, as well as the results of the CT scan. The consent was also completed with the patient at this time and involved a andrews discussion of the pathology involved, the procedure proposed, alternatives including doing nothing or transferred to [facility], risks including but not limited to, paralysis, swallowing trouble, the likelihood of persistent myelopathic symptoms, need for additional surgery and hoarseness and other issues. She agreed to proceed with surgery. I spent approximately 40 minutes together with the patient this morning more than 50% of that time was direct [id number] time with the patient, additional time was spent reviewing the CT scan, Magnetic Resonance Imaging (MRI ) (MRI), plain films and coordinating with the operating room personnel and the hospitalist group for her preoperative and perioperative care. For further details, please refer to the medical record. ATTENDING PHYSICIAN Thank you NAIN
[2017-02-06] MEDS ORDERED: HYDROmorphone HCL 1 MG/ML SYRINGE (J1170) IV PRN ×2 (22:15)
[2017-02-07 00:45] VITALS: BP 146/71
[2017-02-07 01:45] VITALS: BP 142/70
[2017-02-07 03:45] VITALS: BP 132/71
[2017-02-07 05:45] VITALS: BP 129/70
[2017-02-07 05:49] LABS: MEAN CORPUSCULAR HEMOGLOBIN 30.7 pg (27.0-33.0); MEAN CORPUSCULAR HGB CONC 32.9 g/dl (32.0-36.5); MEAN CORPUSCULAR VOLUME 93.5 fl (80.0-96.0); RED CELL DISTRIBUTION WIDTH 13.5 % (11.5-14.5); WHITE BLOOD COUNT 11.4 K/mm3 (4.0-10.0)
[2017-02-07 06:10] LABS: ANION GAP 9 MEQ/L (8-16); BLOOD UREA NITROGEN 16 MG/DL (7-18); CALCIUM LEVEL 8.1 MG/DL (8.5-10.1); CARBON DIOXIDE LEVEL 25 MEQ/L (21-32); CHLORIDE LEVEL 110 MEQ/L (98-107); CREATININE FOR GFR 0.74 MG/DL (0.55-1.02); GLOMERULAR FILTRATION RATE > 60.0 (>58); GLUCOSE, FASTING 108 MG/DL (70-105); POTASSIUM SERUM 3.6 MEQ/L (3.5-5.1); SODIUM LEVEL 144 MEQ/L (136-145)
[2017-02-07 07:42] VITALS: BP 127/71
[2017-02-07 08:07] LABS: PROTEIN C ANTIGEN 83 % (60-150); PROTEIN S ANTIGEN FREE 138 % (57-157); PROTEIN S ANTIGEN TOTAL 121 % (60-150)
[2017-02-07] MEDS ORDERED: MIRALAX *UNIT DOSE* 17GM PACKET PO SCH (09:00)
[2017-02-07] MEDS ORDERED: SENOKOT S TAB PO SCH (09:00)
[2017-02-07] MEDS ORDERED: METAMUCIL (PSYLLIUM) PACKET PO SCH (09:00)
[2017-02-07] MEDS ORDERED: MOM 30ML SUSPENSION UDC PO SCH (09:00)
--- NOTE | 2017-02-07 11:12 | REP ---
Clinical: Postoperative evaluation. Technique: AP and lateral views of the cervical spine. Findings: The patient is status post anterior fusion and discectomy at the C4 - C7 levels. Satisfactory hardware placement and alignment is maintained. Normal postoperative changes are appreciated in the surrounding soft tissues. Impression: Status post anterior fusion. Signed by Ralf Benson MD 02/07/2017 08:32 A
[2017-02-07 11:49] VITALS: BP 131/68
[2017-02-07] MEDS ORDERED: METAPKT PO (13:34)
[2017-02-07] MEDS ORDERED: PERCOCET PO (13:34)
[2017-02-07] MEDS ORDERED: MAPA325T3 PO (13:34)
--- NOTE | 2017-02-07 15:22 | RO ---
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 POSTOPERATIVE DIAGNOSIS: same PROCEDURE PERFORMED: Includes anterior cervical decompression and fusion procedure as follows: Partial corpectomy at C4-5 including debridement of osteophyte, removal of 50% of the C4 vertebral body corpus, and removal of the posterior longitudinal ligament for decompression of the spinal cord and nerve roots, anterior cervical partial corpectomy at C5-6 additional level, anterior cervical partial corpectomy at C6-7 additional level, application of anterior cervical biomechanical device titanium truss system at C4-5, application of interbody device titanium truss system at C5-6, application of interbody device titanium truss system at C6-7, arthrodesis C4-5, arthrodesis C5-6, arthrodesis C6-7, harvest and use of local autograft for spine surgery, application of anterior cervical instrumentation for spine surgery C4, C5, C6, C7. SURGEON: Dr. Vladislav Duron SYSTEM ARCHITECT: Jurgen Corey PA-C ANESTHESIA: General endotracheal, Dr. Vergara. ESTIMATED BLOOD LOSS: Less than 50 mL. No complications. COMPONENTS USED: Include the DePuy Wamic plate system with the appropriate self-tapping and self-drilling screws, 42 mm plate utilized, and the titanium interbody truss system, three cages, size 5 x size 5 large, 7-degree lordotic times one, size 6 small, 0-degree lordotic times two. INDICATIONS: Ms. Roa is a 46-year-old female who has cervical myelopathy due to cervical spinal stenosis at C4-5, C5-6, and C6-7 with cord signal change, myelopathic symptoms in the upper and the lower extremities consistent with Marychuy grade C, spastic quadriparesis affecting the right lower extremity and right upper extremity, as well as gait disturbance. She has elected for operative intervention. CONSENT: Reviewed in detail with the patient, including a andrews discussion of the pathology involved. the surgery proposed, alternatives including nothing or transfer to [facility] if she preferred, risks including, but not limited to, hoarseness, swallowing trouble, paralysis, infection, bleeding, blood loss, need for more surgery, blood clots, gait disorder, incomplete relief of symptoms, and other problems. Specifically, I counseled this patient with respect to the likelihood that she may have residual myelopathic symptoms; in fact, I expect her to have residual symptoms due to the spinal cord injury. DESCRIPTION OF PROCEDURE/OPERATIVE COURSE: Identified in the holding area, site and side verified, brought to the operating room. I personally participated in the positioning of this patient. A bump was placed between the shoulder blades. Head halter traction 8 pounds was applied. Shoulders and arms were taped at the side to allow for exposure. This patient had a body mass index of 48, which resulted in significant additional operative time, positioning time, and increased the level of difficulty of this case. Mr. Corey was present and participated in the entirety of this case, as well. Next, once I and the diagnostic imaging manager were comfortable with the patient's positioning , she was then sterilely prepped and draped in the usual fashion for exposure of the cervical spine for an anterior approach from the right side. Next, incision was outlined with a marking pen and was oblique in orientation. It was 6 cm long approximately, infiltrated with 1% lidocaine with epinephrine, made with a #10 blade knife, developed down through skin and subcuticular tissues to the platysma muscle. The platysma was elevated, and then bipolar cautery was utilized with tenotomy scissors to divide the platysma muscle perpendicular to its fibers. I utilized a headlamp and 3.5 loupe magnification. Mr. Corey stood on the left, I on the right. Next, I ligated several veins crossing the operative field. Next, I identified the omohyoid and the sternocleidomastoid. The omohyoid was elevated, exposed, and then divided using bipolar cautery and a tenotomy scissor. I identified the carotid sheath, and this was protected and was toward the lateral side of the operative dissection. The dissection continued medial to the carotid sheath, to the prevertebral area. Large osteophytes were appreciated. Next, the prevertebral fascia was elevated in several layers. I first exposed the C5-6 level. The bayonet spinal needle was placed at C5-6, and I obtained a crosstable lateral to verify our levels. Once this was accomplished, I elevated the longus colli muscle from C4 through C7 bilaterally. There were very large osteophytes. I exposed C5-6 for the corpectomy first. Large osteophyte was removed using Leksell tool. Next, distraction pins were placed across C5-6, and the Shadow-Line retractor was also secured. It was held in place by Mr. Corey. Retractor blades used in this procedure were 55 mm long because of the patient's body habitus. Next, I removed some disc material at C5-6 using pituitaries, but predominantly the disc was completely collapsed. 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 The oval oh was utilized to implement a partial corpectomy at the C5-6 level, removing the inferior corpus of C5 and the superior corpus of C6, approximately 5 mm of corpus removed. This continued down to the uncinate processes and the posterior longitudinal ligament. The posterior longitudinal ligament was exposed using the oval oh. Next, I then elevated the posterior longitudinal ligament and removed it using # 1 and #2 Kerrisons. This directly exposed the thecal sac and verified our decompression. Decompression was particularly thorough to the right side, which was the asymmetric nature of her stenosis. Next, once this was accomplished, I squared the endplates using the oval oh and the vertebral body corpus using the oval ho. I rasped and then selected the size 5 mm large, 7-degree lordotic cage. This cage was packed with demineralized bone matrix putty mixed with local autograft, which was obtained from oh millings. Next, once the cage was packed, it was tamped into place at the C5-6 level. Distraction pins were removed and the pin holes plugged with wax at C6. I utilized the oval oh to remove additional osteophytes at this point anteriorly. Next, we exposed the C4-5 level, and I placed a distraction pin at C4 and distracted across the interspace. We moved the Shadow-Line retractor to C4-5. C4-5 had a large bridging osteophyte, and this needed to be removed with the oval oh. The C4 vertebral body was extremely petrotic as well. Next, once the collapsed disc space at C4-5 was exposed, I utilized the oval oh to remove 6 mm of vertebral body corpus from the C4 level, and this was continued down to the posterior longitudinal ligament and the vertebral body endplate superiorly at C5 was also squared and the uncinate processes debrided. At this point, I then removed the posterior longitudinal ligament using a curved curette, #1 Kerrisons, and #2 Kerrisons. I then rasped. The thecal sac was exposed and directly visualized. Irrigation was accomplished. Again, oh millings were retained from the vertebral corpectomy, and this was mixed with demineralized bone matrix putty, and it was packed into the 6 mm cage utilized at C4-5. The titanium cage was then implanted at C4-[address]. I then removed the superior distraction pin and plugged the hole with wax. I then utilized the oval oh to further debride significant extensive anterior osteophyte from C4 and C5. Next, once this was accomplished, we then moved the retractor device to the C6-7 level, and I placed a distraction pin at C7 and I replaced the distraction pin at C6 and distracted across C6-7. C6-7 was also nearly completely collapsed, though not as severely collapsed as the other levels. The Leksells were utilized to remove large anterior osteophyte, and the oval oh was then utilized to implement the partial corpectomy at the C6-7 level, removing 6 mm of endplate from superior C7 and approximately 1 or 2 mm from inferior C6 down to the uncinate processes, which were debrided, and exposing the posterior longitudinal ligament. Posterior longitudinal ligament was then elevated using the Miranda curette and removed using #1 and #2 Kerrisons. Rasps were utilized for preparation of the endplates. I selected a size 6 mm titanium cage. At the C4- 5 level, the titanium cage incidentally was the 0-degree cage; and at C6-7, it was the 7-degree cage size 6. Next, the cage was packed with demineralized bone matrix putty and the oh millings. The cage was implanted at C6-7. It was tamped into place. Distraction pins were then removed. Mr. Corey utilized the S retractors to help expose, and I utilized the oval oh to remove and debride anterior vertebral corpus at C6-7 and further contour the anterior vertebral corpus of C4 through C7. Next, once this was accomplished, I selected the size 42 mm Wamic plate. The plate was applied to the anterior vertebral corpus from C4 through C5, through C6, through C7. I drilled the C5 right screw first and placed a 14 mm self-tapping screw at C5 on the right, securing the plate. I then placed the screws at C7 bilaterally, 14 mm self-tapping screws. Next, at C4, I drilled and placed screws with the 12 mm drill. The self-tapping screws, because of the petrotic bone condition, were inadequate so I utilized self-drilling screws 14 mm at the C4 level bilaterally. Once these were secured , I engaged the locking device. I placed a self-drilling screw 14 mm on the left side at C5 bilaterally, self-drilling screws 14 mm at C6, as well. Again, at C6 , to place the self-drilling screws, I first had to drill with a 12 mm drill and the drill guide because of the patient's petrotic bone condition. Next, all locking devices were then engaged. Next, crosstable lateral x-ray was taken to verify plate placement. Additional x-rays will be required postoperatively to further clarify plate and graft placement due to body habitus. Next, irrigation was accomplished. Also, FloSeal hemostatic agent and thrombin were utilized in the course of irrigation. Several milligrams of vancomycin crystals were placed within the wound along with bacitracin solution. Next, we inspected for bleeding, and there was no active bleeding appreciated. Next, all retractors had been removed. The wound was closed with interrupted stitch and Dermabond utilized on skin. Patient was placed in a [place] collar postoperatively, extubated, and moved to the recovery room, appreciated to be in good condition, appreciated to be moving all four extremities, and voicing an improvement in the symptoms at least in the right hand at that time. The patient was phonating well in the recovery room. Next, Mr. Corey was present and participated in the entirety of this case. Dr. Duron was present and participated in the entirety of this case. For further details, please refer to the medical record. NAIN
[2017-02-07] MEDS ORDERED: PERCOCET 5MG/325MG TAB PO PRN (16:45)
--- NOTE | 2017-02-08 09:20 | DS.PDOC ---
Discharge Summary General Date of Admission Feb 04, 2017 at 12:09 Date of Discharge 02/07/17 Specialist/Consultants Involve: Domi Discharge Summary PROCEDURES PERFORMED DURING STAY: Anterior cervical decompression and fusion DISCHARGE DIAGNOSES: 1. Cervical spinal stenosis 2. 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 HISTORY OF PRESENT ILLNESS: This is a 46-year-old who has had a history of tingling in her right fingertips for around 1 month and has had decreased sensation in her right leg for a lesser period of time. She was having difficulty walking, had decreased strength in her right foot, felt as though she was dragging her foot. Her boyfriend told her that it looked as though she was walking as if she was drunk. She waited a day to see if it would get better. It had not gotten better. She came to the hospital for evaluation. Has undergone workup recently with Dr. Moreira due to her neurologic symptoms. HOSPITAL COURSE: Patient admitted with orthopedic and neurological consultation for possible C-spine pathology. Imaging did reveal cervical severe stenosis and cervical cord compression. Patient underwent surgical intervention with dramatic improvement of her symptoms. POD #1 patient seen and evaluated by PT/ OT and cleared for discharge home. Orthopedic with same recommendations. Patient discharged home with outpatient follow up with ortho, neuro and PCP. DISCHARGE MEDICATIONS: Please see below. ALLERGIES: Please see below. PHYSICAL EXAMINATION ON DISCHARGE: VITAL SIGNS: Please see below. GENERAL: NAD HEENT: NC/AT, EOMI, PERRL, NECK: cervical brace in place CARDIOVASCULAR EXAMINATION: +S1S2, RRR RESPIRATORY EXAMINATION: CTA B/L ABDOMINAL EXAMINATION: soft, obese, NT, +BS EXTREMITIES: no edema PSYCHIATRIC EXAMINATION: AAOx3 LABORATORY DATA: Please see below. ACTIVITY: [As tolerated]. DISPOSITION: 01 Home, Self-Care. DISCHARGE INSTRUCTIONS: 1. Follow up ortho as scheduled. 2. Follow up neuro as scheduled. 3. Follow up PCP in 3-5 days. DISCHARGE CONDITION: Stable. TIME SPENT ON DISCHARGE: Greater than 30 minutes. Vital Signs/I&Os Vital Signs Date Time Temp Pulse Resp B/P (MAP) Pulse Ox O2 Delivery O2 Flow Rate FiO2 02/07/17 12:00 18 02/07/17 11:49 96.9 53 131/68 (89) 98 Room Air I&O- Last 24 Hours up to 6 AM 02/08/17 06:00 Intake Total 660 ml Output Total 700 ml Balance -40 ml Discharge Medications Scheduled Psyllium (Konsyl) 1 Pkt Pkt, 1 PKT PO DAILY Scheduled PRN Acetaminophen (Mapap) 325 Mg Tab, 650 MG PO Q6HP PRN for MILD PAIN (PS 1-4) Oxycodone/Acetaminophen (Percocet 5MG/325MG Tablet) 1 Tab Tab, 1 TAB PO Q6HP PRN for PAIN Allergies Coded Allergies: No Known Allergies (Verified , 12/06/02) ELY ARANA MD Feb 08, 2017 09:20
[2017-02-12 00:06] LABS: SJOGREN'S ANTI SS-A <0.2 AI (0.0-0.9); SJOGREN'S ANTI SS-B <0.2 AI (0.0-0.9)
== END 2017-02-07 17:50 | disposition home or self-care (01) | DRG 23 ==
LOC: M ED 07:07 → M ED INP 12:09 → M PCU 20:15
PROVIDERS: ADMIT Internal Medicine; ATTEND Internal Medicine
PROC: 0RG20A0 Fusion of 2 or more Cervical Vertebral Joints with Interbody Fusion Device, Anterior Approach, Anterior Column, Open Approach (ICD-10-PCS; 2017-02-06)
PROC: 0PB30ZZ Excision of Cervical Vertebra, Open Approach (ICD-10-PCS; principal; 2017-02-06 13:41)
DX: G82.52 Quadriplegia, C1-C4 incomplete (principal); M50.00 Cervical disc disorder with myelopathy, unspecified cervical region; E53.8 Deficiency of other specified B group vitamins; M48.02 Spinal stenosis, cervical region; Z79.899 Other long term (current) drug therapy; Z98.51 Tubal ligation status; Z87.891 Personal history of nicotine dependence; Z82.49 Family history of ischemic heart disease and other diseases of the circulatory system; Z83.3 Family history of diabetes mellitus; Z80.41 Family history of malignant neoplasm of ovary; Z80.43 Family history of malignant neoplasm of testis; G82.54 Quadriplegia, C5-C7 incomplete

== ENCOUNTER 2018-02-03 09:31 | Emergency (ER) | payer MEDICAID, OTHER, SELFPAY ==
[2018-02-03 10:43] LABS: HEMATOCRIT 45.6 % (36.0-47.0); HEMOGLOBIN 15.6 g/dl (12.0-15.5); MEAN CORPUSCULAR HEMOGLOBIN 30.3 pg (27.0-33.0); MEAN CORPUSCULAR HGB CONC 34.2 g/dl (32.0-36.5); MEAN CORPUSCULAR VOLUME 88.5 fl (80.0-96.0); RED BLOOD COUNT 5.15 10^6/uL (4.00-5.40); RED CELL DISTRIBUTION WIDTH 13.7 % (11.5-14.5); WHITE BLOOD COUNT 6.7 10^3/uL (4.0-10.0)
[2018-02-03 10:57] LABS: ANION GAP 11 MEQ/L (8-16); BLOOD UREA NITROGEN 14 MG/DL (7-18); CALCIUM LEVEL 8.6 MG/DL (8.5-10.1); CARBON DIOXIDE LEVEL 24 MEQ/L (21-32); CHLORIDE LEVEL 101 MEQ/L (98-107); CREATININE FOR GFR 1.31 MG/DL (0.55-1.30); GLOMERULAR FILTRATION RATE 45.9 (>58); GLUCOSE, FASTING 126 MG/DL (70-100); POTASSIUM SERUM 3.9 MEQ/L (3.5-5.1); SODIUM LEVEL 136 MEQ/L (136-145)
[2018-02-03 11:18] LABS: POS COUNT POS FLAG; POSITIVE MORPH POS FLAG
[2018-02-03 11:19] LABS: ADD MANUAL DIFFER YES; DIFF SLIDE NUMBER 245
[2018-02-03 11:24] LABS: ATYPICAL LYMPH 38 % (0-5); BANDS 6 % (< 11); BASOPHILS 2 % (0-4); EOSINOPHILS 2 % (0-5); LYMPHOCYTES 10 % (16-52); MONOCYTES 9 % (0-8); NEUTROPHILS 33 % (35-75)
[2018-02-03 11:25] LABS: PLATELET CLUMPS LARGE AMT; PLATELET ESTIMATE NORMAL (NORMAL)
[2018-02-03] MEDS ORDERED: ISOVUE-370 76% 100ML VIAL (Q9967) As Ordered (11:34)
[2018-02-03] MEDS: ONDANSETRON 4MG/2ML VIAL (J2405) IV (11:55)
[2018-02-03] MEDS: MORPHINE 4 MG/ML 1ML VIAL/SYRINGE (J2270) IV (11:56)
[2018-02-03 12:22] LABS: ALBUMIN 3.5 GM/DL (3.2-5.2); ALBUMIN/GLOBULIN RATIO 0.78 (1.00-1.93); ALKALINE PHOSPHATASE 139 U/L (45-117); ALT/SGPT 96 U/L (12-78); AST/SGOT 59 U/L (7-37); BILIRUBIN,DIRECT 0.2 MG/DL (0.0-0.2); BILIRUBIN,TOTAL 0.5 MG/DL (0.2-1.0); CK-MB VALUE MASS < 1.0 NG/ML (<3.6); CPK CREATINE PHOSPHOKINASE 73 U/L (26-192); LIPASE 149 U/L (73-393); MB/CK RELATIVE INDEX 1.36 (< OR =4); TROPONIN I < 0.02 NG/ML (< 0.10)
[2018-02-03 13:04] LABS: KETONE, URINE AUTO RFX NEGATIVE (NEGATIVE); LEUKOCYTE ESTERASE UR AUTO RFX NEGATIVE (NEGATIVE); MUCUS, URINE RFX SMALL (NEGATIVE); NITRITE, URINE AUTO RFX NEGATIVE (NEGATIVE); RBC, URINE AUTO RFX 1 /HPF (0-3); SQUAM EPITHELIAL CELL UR AURFX 9 /HPF (0-6); WBC, URINE AUTO RFX 0 /HPF (0-3)
[2018-02-03 13:47] LABS: SPECIFIC GRAVITY UR AUTO RFX >1.060 (1.002-1.035)
== END 2018-02-03 14:28 | disposition home or self-care (01) ==
LOC: M ED 09:31
DX: R10.32 Left lower quadrant pain (principal); M79.601 Pain in right arm; R91.8 Other nonspecific abnormal finding of lung field; M48.02 Spinal stenosis, cervical region
CPT/HCPCS: J2270

== ENCOUNTER → 2018-02-13 | Outpatient (REF) | payer MEDICAID | LOC: M LAB REF 18:19 | DX: N30.01 Acute cystitis with hematuria (principal) | CPT/HCPCS: 87086 ==

== ENCOUNTER → 2018-04-09 | Outpatient (REF) | payer OTHER ==
[2018-04-09 16:01] LABS: HEMATOCRIT 41.7 % (36.0-47.0); HEMOGLOBIN 14.1 g/dl (12.0-15.5); MEAN CORPUSCULAR HGB CONC 33.8 g/dl (32.0-36.5); MEAN CORPUSCULAR VOLUME 94.8 fl (80.0-96.0)
[2018-04-09 16:23] LABS: POS COUNT POS FLAG; SUSPECT SAMPLE POS FLAG
[2018-04-09 16:27] LABS: ALBUMIN 3.4 GM/DL (3.2-5.2); ANION GAP 5 MEQ/L (8-16); BLOOD UREA NITROGEN 13 MG/DL (7-18); CALCIUM LEVEL 9.1 MG/DL (8.5-10.1); CARBON DIOXIDE LEVEL 29 MEQ/L (21-32); CHLORIDE LEVEL 106 MEQ/L (98-107); CREATININE FOR GFR 0.84 MG/DL (0.55-1.30); GLOMERULAR FILTRATION RATE > 60.0 (>58); GLUCOSE, FASTING 97 MG/DL (70-100); PHOSPHORUS LEVEL 3.4 MG/DL (2.5-4.9); POTASSIUM SERUM 4.9 MEQ/L (3.5-5.1); SODIUM LEVEL 140 MEQ/L (136-145)
== END ==
LOC: M LABDRAW1 15:26
DX: R07.2 Precordial pain (principal)

== ENCOUNTER 2018-05-06 07:14 | Emergency (ER) | payer OTHER ==
[2018-05-06] MEDS: NS 1,000 ML IV (07:56)
[2018-05-06 08:01] LABS: BASO % 0.6 % (0.0-1.0); EOS # 0.1 10^3/uL (0.0-0.50); HEMATOCRIT 42.6 % (36.0-47.0); IMMATURE GRANULOCYTE % 0.3 % (0-3.0); LYMPH % 28.7 % (24.0-44.0); MEAN CORPUSCULAR HEMOGLOBIN 30.6 pg (27.0-33.0); MEAN CORPUSCULAR HGB CONC 32.9 g/dl (32.0-36.5); MEAN CORPUSCULAR VOLUME 93.2 fl (80.0-96.0); MONO # 0.6 10^3/uL (0.0-0.8); MONO % 9.2 % (0.0-5.0); NEUTROPHILS # 4.1 10^3/uL (1.8-7.7); NEUTROPHILS % 59.2 % (36.0-66.0); RED BLOOD COUNT 4.57 10^6/uL (4.00-5.40); RED CELL DISTRIBUTION WIDTH 14.2 % (11.5-14.5)
[2018-05-06] MEDS: MORPHINE 4 MG/ML 1ML VIAL/SYRINGE (J2270) IV (08:14)
[2018-05-06] MEDS: ONDANSETRON 4MG/2ML VIAL (J2405) IV (08:14)
[2018-05-06 08:15] LABS: ANION GAP 5 MEQ/L (8-16); BLOOD UREA NITROGEN 12 MG/DL (7-18); CALCIUM LEVEL 8.8 MG/DL (8.5-10.1); CARBON DIOXIDE LEVEL 28 MEQ/L (21-32); CHLORIDE LEVEL 105 MEQ/L (98-107); CREATININE FOR GFR 0.86 MG/DL (0.55-1.30); GLOMERULAR FILTRATION RATE > 60.0 (>58); GLUCOSE, FASTING 81 MG/DL (70-100); POTASSIUM SERUM 4.1 MEQ/L (3.5-5.1); SODIUM LEVEL 138 MEQ/L (136-145)
[2018-05-06] MEDS ORDERED: ISOVUE-370 76% 100ML VIAL (Q9967) As Ordered (08:15)
[2018-05-06 08:19] LABS: LACTIC ACID SEPSIS PROTOCOL 1.3 MMOL/L (0.4-2.0)
[2018-05-06 08:33] LABS: POS COUNT POS FLAG
[2018-05-06] MEDS: methylPREDNISolone INJ 125 MG/2 ML VIAL (J2930) IV (09:33)
[2018-05-06] MEDS: CLINDAMYCIN 600 MG in APPROPRIATE DILUENT 1 EA IV (09:33)
[2018-05-06] MEDS: PERCOCET 5MG/325MG TAB PO (09:38)
== END 2018-05-06 11:10 | disposition home or self-care (01) ==
LOC: M ED 07:14
DX: K02.9 Dental caries, unspecified (principal); S02.5XXA Fracture of tooth (traumatic), initial encounter for closed fracture; X58.XXXA Exposure to other specified factors, initial encounter; Y92.89 Other specified places as the place of occurrence of the external cause
CPT/HCPCS: J2270

== ENCOUNTER → 2018-07-29 | Outpatient (CLI) | payer OTHER ==
[~2018-07-29] MED LIST changes: +CLEO300C2 PO; +PERC5TAB12 PO; +TYLE325T5 PO
--- NOTE | 2018-07-29 15:36 | REPMRS ---
Patient History The patient states she had a clinical breast exam in 07/21 Family history of ovarian cancer at age 38 in mother, prostate cancer at age 50 or over in father, ovarian cancer under age 50 in maternal aunt, ovarian cancer under age 50 in maternal aunt, ovarian cancer under age 50 in maternal aunt. Digital Woman Screen Mammo: July 29, 2018 - Exam #: [id number] Bilateral CC and MLO view(s) were taken. Technologist: Joceline Tay, Technologist Prior study comparison: August 25, 2014, digital woman screen mammo performed at [facility] [employer] [facility]. December 03, 2011, digital woman screen mammo performed at [facility]. February 03, 2009, bilateral bilat screen digital mammo performed at [facility] [employer] [facility]. FINDINGS: The breast tissue is almost entirely fat. There has been no change in the appearance of the mammogram from the prior studies. There is no interval development of dominant mass, architectural distortion, or clustered microcalcification typical of malignancy. 3-D tomosynthesis shows no additional findings. Assessment: BI-RADS/ACR category 1 mammogram. Negative Mammogram. Recommendation Routine screening mammogram of both breasts in 1 year (for women over age 40). This patient's Lifetime Breast Cancer RIsk is estimated at 15.8 %. This mammogram was interpreted with the aid of an FDA-approved computer-aided dectection system. Electronically Signed By: Stephen Steven MD 07/29/18 [id number]
== END ==
LOC: M WHC 13:57
PROVIDERS: ATTEND Nurse Practitioner Women's Health
DX: Z12.31 Encounter for screening mammogram for malignant neoplasm of breast (principal)

== ENCOUNTER → 2018-07-29 | Outpatient (REF) | payer OTHER ==
[2018-07-31 14:22] LABS: HPV HYBRID CAPTURE II Negative (Negative)
== END ==
LOC: M SFHCWAGY 14:14
PROVIDERS: ATTEND Nurse Practitioner Women's Health
DX: Z12.4 Encounter for screening for malignant neoplasm of cervix (principal); Z11.51 Encounter for screening for human papillomavirus (HPV)

== ENCOUNTER 2018-09-08 09:20 | Day surgery (SDC) | payer OTHER ==
[~2018-09-08] VITALS: Ht 165.1 cm; Wt 133.4 kg
[~2018-09-08 09:20] MED LIST changes: +KONS100P6 PO; +LIDOCAINE 2% INJ 100 MG/5 ML SDV (FOR ANES.) As Ordered ONE; -METAPKT PO; +NS 1,000 ML IV ONE; +PHEN-239 PO; +PROPOFOL 200 MG/20 ML VIAL As Ordered ONE; +TOPI50TA9 PO
[2018-09-08 11:27] VITALS: BP 177/98
--- NOTE | 2018-09-08 12:10 | ROOR ---
Patient Name: Aurea Roa Procedure Date: 09/08/2018 10:48 AM Date of : 1970 Age: 48 Room: [facility], [facility] Gender: Female Note Status: Finalized Procedure: Colonoscopy Indications: Colon cancer screening in patient at increased risk: Family history of 1st-degree relative with colon polyps Providers: Byron Nickerson MD Referring MD: Khoi ZIMMER MD Requesting Provider: Medicines: Monitored Anesthesia Care Complications: No immediate complications. Procedure: Pre-Anesthesia Assessment: - Prior to the procedure, a History and Physical was performed, and patient medications and allergies were reviewed. The patient is competent. The risks and benefits of the procedure and the sedation options and risks were discussed with the patient. All questions were answered and informed consent was obtained. Patient identification and proposed procedure were verified by the physician, the nurse and the anesthesiologist in the procedure room. Mental Status Examination: alert and oriented. Airway Examination: normal oropharyngeal airway and neck mobility. Respiratory Examination: clear to auscultation. CV Examination: normal. Prophylactic Antibiotics: The patient does not require prophylactic antibiotics. Prior Anticoagulants: The patient has taken no previous anticoagulant or antiplatelet agents. ASA Grade Assessment: II - A patient with mild systemic disease. After reviewing the risks and benefits, the patient was deemed in satisfactory condition to undergo the procedure. The anesthesia plan was to use monitored anesthesia care (MAC). Immediately prior to administration of medications, the patient was re-assessed for adequacy to receive sedatives. The heart rate, respiratory rate, oxygen saturations, blood pressure, adequacy of pulmonary ventilation, and response to care were monitored throughout the procedure. The physical status of the patient was re-assessed after the procedure. The Colonoscope was introduced through the anus with the intention of advancing to the cecum. The scope was advanced to the descending colon before the procedure was aborted. Medications were given. The colonoscopy was performed without difficulty. The patient tolerated the procedure well. The quality of the bowel preparation was unsatisfactory. No anatomical landmarks were photographed. Scope insertion time was 1 minute. Scope withdrawal time was 1 minute. The total duration of the procedure was 2 minutes. Findings: The perianal and digital rectal examinations were normal. A large amount of stool was found from rectum to descending colon, precluding visualization. Lavage of the area was performed using a large amount of sterile water, resulting in incomplete clearance with continued poor visualization. Procedure stopped due to inadequate bowel preparation Impression: - Preparation of the colon was unsatisfactory. - Stool from rectum to descending colon. - No specimens collected. Recommendation: - Patient has a contact number available for emergencies. The signs and symptoms of potential delayed complications were discussed with the patient. Return to normal activities tomorrow. Written discharge instructions were provided to the patient. - Resume previous diet. - Continue present medications. - Repeat colonoscopy at next available appointment (within 3 months) because the bowel preparation was poor. - Telephone GI clinic to schedule appointment in 1 week. - Return to primary care physician. Byron Nickerson MD Byron Nickerson MD 09/08/2018 12:10:29 PM Electronically signed by Byron Nickerson MD Number of Addenda: 0 Note Initiated On: 09/08/2018 10:48 AM Estimated Blood Loss: Estimated blood loss: none.
== END 2018-09-08 11:27 | disposition home or self-care (01) ==
LOC: M OPP 09:20
PROVIDERS: ATTEND Internal Medicine Gastroenterology
DX: Z12.11 Encounter for screening for malignant neoplasm of colon (principal); Z83.71 Family history of colonic polyps

== ENCOUNTER → 2020-01-21 | Outpatient (CLI) | payer OTHER ==
[~2020-01-21] MED LIST changes: +ACET325T42 PO; -LIDOCAINE 2% INJ 100 MG/5 ML SDV (FOR ANES.) As Ordered ONE; -MAPA325T3 PO; -NS 1,000 ML IV ONE; -PROPOFOL 200 MG/20 ML VIAL As Ordered ONE
--- NOTE | 2020-01-22 14:18 | REPMRS ---
Patient History The patient states she had a clinical breast exam in January 2020. Patient is postmenopausal. Family history of ovarian cancer at age 38 in mother, prostate cancer at age 50 or over in father, ovarian cancer under age 50 in maternal aunt, ovarian cancer under age 50 in maternal aunt, ovarian cancer under age 50 in maternal aunt. Digital Woman Screen Mammo: January 21, 2020 - Exam #: [id number] Bilateral CC and MLO view(s) were taken. Technologist: Joceline Tay, Technologist Prior study comparison: July 29, 2018, bilateral digital woman screen mammo performed at [facility]. August 25, 2014, digital woman screen mammo performed at [facility]. December 03, 2011, digital woman screen mammo performed at [facility]. FINDINGS: The breast tissue is almost entirely fat. The Volpara volumetric breast density category is: A. There has been no change in the appearance of the mammogram from the prior studies. There is no interval development of dominant mass, architectural distortion, or grouped microcalcification typical of malignancy. 3-D tomosynthesis shows no additional findings. Assessment: BI-RADS/ACR category 1 mammogram. Negative Mammogram. Recommendation Routine screening mammogram of both breasts in 1 year (for women over age 40). This patient's Lifetime Breast Cancer RIsk is estimated at 15.8 %. This mammogram was interpreted with the aid of an FDA-approved computer-aided dectection system. Electronically Signed By: Stephen Steven MD 01/22/20 [id number]
== END ==
LOC: M WHC 09:20
PROVIDERS: ATTEND Nurse Practitioner Women's Health
DX: Z12.31 Encounter for screening mammogram for malignant neoplasm of breast (principal); Z12.4 Encounter for screening for malignant neoplasm of cervix

== ENCOUNTER → 2021-07-19 | Outpatient (CLI) | payer OTHER ==
[2021-07-19 12:36] LABS: HEMATOCRIT 42.5 % (36.0-47.0); HEMOGLOBIN 13.9 g/dl (12.0-15.5); MEAN CORPUSCULAR HEMOGLOBIN 33.7 pg (27.0-33.0); MEAN CORPUSCULAR HGB CONC 32.7 g/dl (32.0-36.5); MEAN CORPUSCULAR VOLUME 102.9 fl (80.0-96.0); RED BLOOD COUNT 4.13 10^6/uL (4.00-5.40); WHITE BLOOD COUNT 11.5 10^3/uL (4.0-10.0)
[2021-07-19 12:54] LABS: CALCIUM LEVEL 8.7 MG/DL (8.5-10.1); CREATININE FOR GFR 1.14 MG/DL (0.55-1.30); GLOMERULAR FILTRATION RATE 53.1 (>51); POTASSIUM SERUM 4.2 MEQ/L (3.5-5.1)
== END ==
LOC: M WUC 09:24
PROVIDERS: ATTEND Nurse Practitioner Family
DX: J18.9 Pneumonia, unspecified organism (principal)

== ENCOUNTER → 2022-03-26 | Outpatient (REF) | payer OTHER ==
[2022-03-26 17:16] LABS: BASO % 0.5 % (0.0-1.0); EOS # 0.1 10^3/uL (0.0-0.5); EOS % 2.1 % (0.0-3.0); HEMATOCRIT 42.6 % (36.0-47.0); HEMOGLOBIN 13.8 g/dl (12.0-15.5); LYMPH # 2.1 10^3/uL (1.5-5.0); LYMPH % 35.9 % (24.0-44.0); MEAN CORPUSCULAR HEMOGLOBIN 32.2 pg (27.0-33.0); MEAN CORPUSCULAR HGB CONC 32.4 g/dl (32.0-36.5); MEAN CORPUSCULAR VOLUME 99.3 fl (80.0-96.0); MONO # 0.5 10^3/uL (0.0-0.8); MONO % 8.5 % (2.0-8.0); NEUTROPHILS % 52.7 % (36.0-66.0); RED BLOOD COUNT 4.29 10^6/uL (4.00-5.40); WHITE BLOOD COUNT 5.8 10^3/uL (4.0-10.0)
[2022-03-26 17:18] LABS: ALBUMIN 3.5 GM/DL (3.2-5.2); BLOOD UREA NITROGEN 12 MG/DL (7-18); CALCIUM LEVEL 8.8 MG/DL (8.5-10.1); CARBON DIOXIDE LEVEL 27 MEQ/L (21-32); CHLORIDE LEVEL 108 MEQ/L (98-107); CREATININE FOR GFR 0.94 MG/DL (0.55-1.30); GLOMERULAR FILTRATION RATE > 60.0 (>51); GLUCOSE, FASTING 97 MG/DL (70-100); MAGNESIUM LEVEL 2.1 MG/DL (1.8-2.4); PHOSPHORUS LEVEL 3.5 MG/DL (2.5-4.9); POTASSIUM SERUM 3.5 MEQ/L (3.5-5.1); SODIUM LEVEL 142 MEQ/L (136-145)
== END ==
LOC: M LABWUC 16:24
PROVIDERS: ATTEND Physician Assistant
DX: I50.20 Unspecified systolic (congestive) heart failure (principal)